=== PATIENT | female | born 2005 | race Caucasian/White ===

== ENCOUNTER 2023-02-21 08:01 | Emergency (ER) | payer MEDICAID ==
[~2023-02-21] VITALS: Ht 175.3 cm; Wt 78.5 kg
[~2023-02-21 08:01] MED LIST: ANT30 PO; CEPH-548 PO; ONDA-8 TL
[2023-02-21 08:21] VITALS: BP_SYST 140; PULSE 88; RESP 17; TEMP 97.3; O2SAT 98
[2023-02-21] MEDS ORDERED: AMOX500C2 PO (09:39)
[2023-02-21 09:45] VITALS: BP_SYST 140; PULSE 88; RESP 17; TEMP 97.3; O2SAT 98
== END 2023-02-21 09:44 | disposition home or self-care (01) ==
LOC: SED 08:01
DX: J02.9 Acute pharyngitis, unspecified (principal); Z79.899 Other long term (current) drug therapy
CPT/HCPCS: 36415; 86403; 87081; 99283

== ENCOUNTER 2023-08-26 09:38 | Emergency (ER) | payer MEDICAID ==
[~2023-08-26 09:38] MED LIST changes: +AMOX500C2 PO
[2023-08-26 09:55] VITALS: BP_SYST 132; PULSE 80; RESP 18; TEMP 97; O2SAT 97
[2023-08-26] MEDS ORDERED: CEPH-548 PO (10:16)
[2023-08-26] MEDS ORDERED: ONDA-8 TL (10:16)
[2023-08-26] MEDS ORDERED: CETI-80 PO (10:16)
[2023-08-26] MEDS ORDERED: PRED50TA PO (10:16)
[2023-08-26 10:22] VITALS: BP_SYST 132; PULSE 80; RESP 18; TEMP 97; O2SAT 97
== END 2023-08-26 10:38 | disposition home or self-care (01) ==
LOC: SED 09:38
DX: S80.861A Insect bite (nonvenomous), right lower leg, initial encounter (principal); L29.9 Pruritus, unspecified; R11.0 Nausea; Z79.899 Other long term (current) drug therapy; Z79.2 Long term (current) use of antibiotics; W57.XXXA Bitten or stung by nonvenomous insect and other nonvenomous arthropods, initial encounter; Y93.89 Activity, other specified; Y92.89 Other specified places as the place of occurrence of the external cause; Y99.8 Other external cause status
CPT/HCPCS: 99283